=== PATIENT | male | born 1990 | race Caucasian/White ===

== ENCOUNTER 2018-04-18 08:47 | Emergency (ER) | payer OTHER, SELFPAY ==
--- NOTE | 2018-04-18 09:02 | ED.GENADUL_ITS ---
Discharge Plan Discharge Details Primary Care Provider: Damion Mariee ED Provider: Abdi Benavides Discharge Data Discharge Date/Time-TO BE ENTERED AT DEPARTURE: 04/18/18 09:25 HPI General Date/Time Provider Initiated Documentation: 04/18/18 08:48 . HPI Narrative: System currently in downtime, unable to use the EMR, refer to T- sheet
== END 2018-04-18 09:24 ==
PROVIDERS: Emergency Provider Student in an Organized Health Care Education/Training Program; PCP Internal Medicine
DX: T23.251A Burn of second degree of right palm, initial encounter (principal); X18.XXXA Contact with other hot metals, initial encounter
CPT/HCPCS: 16020; 90471